=== PATIENT | male | born 1985 ===

== ENCOUNTER 2016-09-09 14:00 | Emergency (ER) | payer BC ==
[2016-09-09 15:28] VITALS: BP 152/96
--- NOTE | 2016-09-09 15:39 | UC ---
UC General HPI - HPI Summary HPI Summary: patient has had GONZALEZ, body aches, fatigue, blurry vision, and just feeling not well for the past 2 days. - History of Current Complaint Chief Complaint: UCGeneralIllness Stated Complaint: FLU SXS Time Seen by Provider: 09/09/16 15:22 Hx Obtained From: Patient Onset/Duration: Sudden Onset, Lasting Days Timing: Constant Onset Severity: Mild Current Severity: Moderate Associated Signs & Symptoms: Positive: Diarrhea, Headache, Nausea, Weakness - Allergy/Home Medications Allergies/Adverse Reactions: Allergies Allergy/AdvReac Type Severity Reaction Status Date / Time No Known Allergies Allergy Verified 09/09/16 15:28 Home Medications: Home Medications Homeopathic Products [Oscillococcinum] 1 mis PO ONCE PRN 09/09/16 [History Confirmed 09/09/16] PMH/Surg Hx/FS Hx/Imm Hx Previously Healthy: Yes - Surgical History Surgical History: Yes Surgery Procedure, Year, and Place: ORIF Left knee - Family History Known Family History: Negative: Cardiac Disease, Hypertension - Social History Alcohol Use: Daily Alcohol Amount: 5-6 nights a week he has 5-6 drinks Substance Use Type: None Smoking Status (MU): Current Every Day Smoker Type: eCigarettes Review of Systems Constitutional: Fatigue Skin: Negative Eyes: Blurred Vision ENT: Negative Respiratory: Negative Cardiovascular: Negative Gastrointestinal: Diarrhea, Other - nausea Genitourinary: Negative Motor: Negative Neurovascular: Negative Musculoskeletal: Myalgia Neurological: Headache Psychological: Negative All Other Systems Reviewed And Are Negative: Yes Physical Exam Triage Information Reviewed: Yes Appearance: Well-Nourished, Pain Distress Vital Signs: Initial Vital Signs Temp 98.9 F 09/09/16 15:20 Pulse 70 09/09/16 15:20 Resp 14 09/09/16 15:20 BP 152/96 09/09/16 15:20 Pulse Ox 95 09/09/16 15:20 Vital Signs Reviewed: Yes Eye Exam: Normal Eyes: Positive: Conjunctiva Clear ENT Exam: Normal ENT: Positive: Normal ENT inspection, Hearing grossly normal, Pharynx normal, TMs normal Dental Exam: Normal Neck exam: Normal Neck: Positive: Supple, No Lymphadenopathy, Tenderness @ - long the right scalenes and SCM, Respiratory Exam: Normal Respiratory: Positive: Chest non-tender, Lungs clear, No respiratory distress, No accessory muscle use, Wheezing, Inspiration Cardiovascular Exam: Normal Cardiovascular: Positive: RRR, No Murmur, Pulses Normal Abdominal Exam: Normal Abdomen Description: Positive: Nontender, No Organomegaly, Soft Bowel Sounds: Positive: Present Musculoskeletal Exam: Normal Musculoskeletal: Positive: Strength Intact, ROM Intact, No Edema Neurological Exam: Normal Neurological: Positive: Alert, Muscle Tone Normal Psychological Exam: Normal Skin Exam: Normal Course/Dx - Course Course Of Treatment: hx obtained, exam performed, meds reviewed, flu test obtained and is negative, albuterol neb given for wheezing. medications prescribed. recommend follow up if symtpoms worsen. - Differential Dx - Multi-Symptom Provider Diagnoses: bronchospasm. myalgia Discharge - Discharge Plan Condition: Stable Disposition: HOME Patient Education Materials: Bronchospasm (ED) Forms: *Work Release Additional Instructions: 1. start the prednisone tomorrow morning for 2 tabs daily for 5 days. 2. Use the guaifenesin cough syrup for sleep, do not drive or consume with alcohol 3. get plenty of rest, work note has been included. 4. Continue with increased fluid intake. 5. Follow up with any worsening symtpoms.
[2016-09-09] MEDS ORDERED: Levalbuterol 0.63MG/3ML NEB INH ONE (15:57)
== END 2016-09-09 16:34 | disposition home or self-care (01) ==
LOC: UCCORT 14:00
DX: J98.01 Acute bronchospasm (principal); M79.1 Myalgia; R03.0 Elevated blood-pressure reading, without diagnosis of hypertension; F17.210 Nicotine dependence, cigarettes, uncomplicated
CPT/HCPCS: 87502; 99202; A9270-GY; G0463